=== PATIENT | male | born 1985 | race Hispanic/Latino ===

== ENCOUNTER 2019-05-30 10:50 | Emergency (ER) | payer OTHER, SELFPAY ==
--- NOTE | ~2019-05-30 | XR_ITS ---
EXAMINATION: XR chest 2V EXAM DATE: 05/30/2019 12:22 INDICATION: Cough and fever. TECHNIQUE: Frontal and lateral projections of the chest obtained and reviewed. Comparison is made to prior examination from 10/20/2011. FINDINGS: The lungs are clear. There are no pleural effusions. The cardiomediastinal silhouette is within normal limits. There is no pneumothorax suspected. The bones and soft tissues are unremarkab le. IMPRESSION: Normal chest x-ray exam. Reviewed, dictated and finalized at location A. CATESSEN CLERK IMPRESSION: Normal chest x-ray exam.
[2019-05-30 11:03] VITALS: BP 101/74; PULSE 79; RESP 18; TEMP 36.4; O2SAT 100
--- NOTE | 2019-05-30 11:21 | ED.URI ---
HPI - URI/Sore Throat General Chief Complaint: Upper Respiratory Infection Stated Complaint: I feel like crap Time Seen by Provider: 05/30/19 11:00 Source: patient Mode of arrival: ambulatory Limitations: no limitations History of Present Illness HPI Narrative: This is a 33 year old male that presents to the ER for cold symptoms x 2 days. Reports cough, congestion, myalgias and sore throat. Reports generalized weakness. Reports his children have been diagnosed with the Flu. Also reports a history of asthma and feeling short of breath. Denies chest pain. Related Data Home Medications Medication Instructions Recorded Confirmed No Home Medications 05/30/19 05/30/19 Allergies Allergy/AdvReac Type Severity Reaction Status Date / Time No Known Allergies Allergy Mild Verified 05/30/19 11:08 Review of Systems Review of Systems: Narrative: CONSTITUTIONAL: Reports fever, chills, and sweats. ENT: Reports rhinorrhea, congestion, sore throat CARDIOVASCULAR: Denies chest pain RESPIRATORY: Reports cough and dyspnea. GASTROINTESTINAL: Denies abdominal pain, nausea, vomiting NEUROLOGIC: Reports weakness. All systems reviewed & are unremarkable except as noted in HPI and below PMFSH Social History Social History Smoking status: Current every day smoker Gender identity (if verbalized by the patient): Male Exam Narrative: Exam Narrative: GENERAL: Well-appearing, well-nourished, and in no acute distress. HEAD: Normocephalic, atraumatic. EYES: EOMI. ENT: Turbinates swollen and pale. Mucous membranes moist. Oropharynx without tonsillar hypertrophy exudate or other lesions. Bilateral TMs pearly bond non-bulging NECK: Supple. No adenopathy or masses. CHEST: Clear to auscultation. No respiratory distress. No wheezes rales or rhonchi HEART: Regular rate and rhythm. No murmur heard. Normal peripheral pulses. EXTREMITIES: Normal range of motion. No edema. SKIN: Warm, dry, no rash. NEURO: No focal deficits. Alert and oriented x3. PSYCH: Normal mood and affect Course Vital Signs Vital signs: Vital Signs Temperature 97.6 F 05/30/19 11:03 Pulse Rate 79 05/30/19 11:03 Respiratory Rate 18 05/30/19 11:03 Blood Pressure 101/74 05/30/19 11:03 Pulse Oximetry 100 05/30/19 11:03 Temperature 97.6 F 05/30/19 11:03 Pulse Rate 79 05/30/19 11:03 Respiratory Rate 18 05/30/19 11:03 Blood Pressure 101/74 05/30/19 11:03 Pulse Oximetry 100 05/30/19 11:03 MDM - URI/Sore Throat MDM Narrative Medical decision making narrative: Patient presents to the emergency department for cold symptoms x2 days. He is afebrile and nontoxic-appearing. Influenza screen is negative. Does report sick contacts in his children who are positive for the flu. Patient is outside treatment window anyway even if this was a false negative. Chest x-ray is normal.Patient was instructed on [id number] care of viral infection. He is to follow-up with primary care doctor. He was given warnings to return to the ER Lab Data Labs: Influenza A Screen Negative Reference Range: Negative Influenza B Screen Negative Reference Range: Negative Imaging Data Radiologist's impression: ITS Impressions Chest X-Ray 05/30/19 12:27 IMPRESSION: Normal chest x-ray exam. Critical Care Time Critical Care Time Critical Care Time: No Discharge Plan Discharge Clinical Impression: Viral infection Patient Disposition: Home, Self-Care Condition: Stable Instructions: Cold Symptoms (ED) Additional Instructions: Return to the emergency department for worsening symptoms, or any other concerns Remain well-hydrated, get plenty of rest, no work or school for several days. Take Tylenol or Motrin [id number] for pain as needed. Flonase for nasal congestion. Zyrtec for runny nose. Lozenges or Chloraseptic spray for sore throa
== END 2019-05-30 13:04 | disposition home or self-care (01) ==
PROVIDERS: Emergency Provider Family Medicine
DX: B34.9 Viral infection, unspecified (principal); F17.200 Nicotine dependence, unspecified, uncomplicated
CPT/HCPCS: 71046; 87804; 99283

== ENCOUNTER 2019-06-10 04:19 | Emergency (ER) | payer OTHER, SELFPAY ==
--- NOTE | ~2019-06-10 | XR_ITS ---
EXAMINATION: XR hand RT min 3V DATE: 06/10/2019 04:44 INDICATION: Right hand injury. TECHNIQUE: 3 views of right hand were obtained. COMPARISON: None. FINDINGS: There is an oblique fracture of neck of third metacarpal. The distal fracture fragment demo nstrates 2 mm palmar displacement and 13 degrees palmar angulation. Joint spaces are normal. IMPRESSION: 1. Oblique fracture of neck of third metacarpal. Reviewed, dictated and finalized at location A. OPERATIVE TECH
--- NOTE | ~2019-06-10 | XR_ITS ---
EXAMINATION: XR wrist RT min 3V DATE: 06/10/2019 04:43 INDICATION: Right wrist injury. TECHNIQUE: 4 views of right wrist were obtained. COMPARISON: None. FINDINGS: There is an oblique fracture of neck of third metacarpal. The distal fracture fragment demo nstrates 2 mm palmar displacement and 13 degrees palmar angulation. Joint spaces are normal. IMPRESSION: 1. Oblique fracture of neck of third metacarpal. Reviewed, dictated and finalized at location A. ICK BOAT OPERATOR
[2019-06-10 04:25] VITALS: BP 109/63; PULSE 88; RESP 20; TEMP 36.4; O2SAT 98
--- NOTE | 2019-06-10 04:27 | ED.GENADULT ---
HPI - General Adult General Chief complaint: Extremity Injury, Upper Stated complaint: hand injury Time Seen by Provider: 06/10/19 04:24 Source: RN notes reviewed History of Present Illness HPI narrative: Patient presents to emergency department from home for right hand pain. Patient states prior to arrival he punched a wall with his right hand. Having pain in the right hand and wrist with swelling noted. Patient states he has pain at the base of the third and fourth digit dorsally. He denies any other injury. States he took no previous medication for the pain. Related Data Allergies Allergy/AdvReac Type Severity Reaction Status Date / Time No Known Allergies Allergy Mild Verified 06/10/19 04:27 Review of Systems Review of Systems: Narrative: Gen.: Denies fevers or chills Musculoskeletal: See HPI Neuro: Denies numbness, tingling, weakness Skin: Denies rash Endo: Denies DM PMFSH Past Medical History Medical History Asthma Bipolar disorder No pertinent family history Tympanic membrane perforation left Social History Social History Smoking status: Current every day smoker Gender identity (if verbalized by the patient): Male Exam Narrative: Exam Narrative: APPEARANCE: No acute distress, nontoxic, resting in bed Eyes: EOMI HEENT: Normocephalic, atraumatic, RESPIRATORY: No respiratory distress MUSCULOSKELETAl: Tender to palp patient diffusely over the right dorsal hand with swelling and ecchymosis noted at the base of the third and fourth digits in the region of the MCP, pain with any flexion or extension of all 5 MCP and IP joints, mild tenderness of the dorsal right wrist, no tenderness of the elbow, radial pulse 2+, neurovascular intact capillary refill less than 3 seconds in all 5 digits NEURO: Awake and alert. Following commands, speech normal, no focal deficits SKIN:: Warm, dry. Normal Color no rash or lesions Course Course Emergency Course: Discussed with patient results of workup and diagnosis. Discussed need for follow-up with primary care, proper use of medication, and reasons to return to the emergency department. Patient understands and agrees to current treatment plan Vital Signs Vital signs: Vital Signs Temperature 97.6 F 06/10/19 04:25 Pulse Rate 88 06/10/19 04:25 Respiratory Rate 20 06/10/19 04:25 Blood Pressure 109/63 06/10/19 04:25 Pulse Oximetry 98 06/10/19 04:25 Temperature 97.6 F 06/10/19 04:25 Pulse Rate 88 06/10/19 04:25 Respiratory Rate 20 06/10/19 04:25 Blood Pressure 109/63 06/10/19 04:25 Pulse Oximetry 98 06/10/19 04:25 Procedures Orthopedic Splinting/Casting Injury #1: Side: right Splint: customized in ED OCL: volar Pre-Procedure Neuro Vascular Exam: normal Post-Procedure Neuro Vascular Exam: normal Medical Decision Making Vital Signs Vital Signs: Vital Signs Temperature 97.6 F 06/10/19 04:25 Pulse Rate 88 06/10/19 04:25 Respiratory Rate 20 06/10/19 04:25 Blood Pressure 109/63 06/10/19 04:25 Pulse Oximetry 98 06/10/19 04:25 Temperature 97.6 F 06/10/19 04:25 Pulse Rate 88 06/10/19 04:25 Respiratory Rate 20 06/10/19 04:25 Blood Pressure 109/63 06/10/19 04:25 Pulse Oximetry 98 06/10/19 04:25 Imaging Data Attestation: I personally reviewed and interpreted this imaging study as follows: My impression: Right hand closed displaced third metacarpal fracture Discharge Plan Discharge Clinical Impression: Closed displaced fracture of third metacarpal bone Patient Disposition: Home, Self-Care Condition: Stable Instructions: Antibiotic Form, Boxer Fracture (ED) Additional Instructions: Return for increasing pain, numbness or tingling in extremities or any other symptoms of concern Prescriptions: New ibuprofen [IBU] 600 mg tablet 600 mg PO
[2019-06-10 05:47] VITALS: BP 110/80; PULSE 88; RESP 20; O2SAT 99
== END 2019-06-10 05:48 | disposition home or self-care (01) ==
PROVIDERS: Emergency Provider Emergency Medicine
DX: S62.332A Displaced fracture of neck of third metacarpal bone, right hand, initial encounter for closed fracture (principal); J45.909 Unspecified asthma, uncomplicated; F17.210 Nicotine dependence, cigarettes, uncomplicated; W22.09XA Striking against other stationary object, initial encounter
CPT/HCPCS: 29125; 73110; 73130; 99284; A9270

== ENCOUNTER 2019-06-21 13:41 | Emergency (ER) | payer OTHER, SELFPAY | END 2019-06-21 14:26 | disposition left against medical advice (07) | DX: Z53.21 Procedure and treatment not carried out due to patient leaving prior to being seen by health care provider (principal) | CPT/HCPCS: 99199 ==

== ENCOUNTER 2019-06-21 13:41 | Emergency (ER) | payer OTHER, SELFPAY | END 2019-06-21 14:05 | disposition left against medical advice (07) | DX: Z53.21 Procedure and treatment not carried out due to patient leaving prior to being seen by health care provider (principal) | CPT/HCPCS: 99199 ==

== ENCOUNTER 2019-06-21 14:09 | Emergency (ER) | payer OTHER, SELFPAY ==
[2019-06-21 14:17] VITALS: BP 133/73; PULSE 98; RESP 16; TEMP 37.2; O2SAT 98
--- NOTE | 2019-06-21 15:35 | ED.UPPEXIN ---
HPI - Extremity Injury (Upper) General Chief Complaint: Extremity Injury, Upper Stated Complaint: wants right arm rewrapped Time Seen by Provider: 06/21/19 14:37 Source: patient Mode of arrival: ambulatory Limitations: no limitations History of Present Illness HPI narrative: Patient presents for reapplication of splint to right hand. Patient was diagnosed with boxer's fracture and a splint was placed in emergency department. Patient followed up with Dr. Tom who the patient states is referring him to the [facility] for a removable splint. Patient reports that his splint was falling apart so he was directed to come to the emergency department for reapplication. Patient denies any other symptoms or concerns. Related Data Allergies Allergy/AdvReac Type Severity Reaction Status Date / Time No Known Allergies Allergy Mild Verified 06/13/19 09:02 Review of Systems Review of Systems: Narrative: CONSTITUTIONAL: Denies fever, chills, or sweats. EYES: Denies visual changes, redness, or discharge. ENT: Denies rhinorrhea, congestion, sore throat, or otalgia. CARDIOVASCULAR: Denies chest pain, palpitations, or edema. RESPIRATORY: Denies cough or dyspnea. GASTROINTESTINAL: Denies abdominal pain, nausea, vomiting, or diarrhea. GENITOURINARY: Denies dysuria or hematuria. SKIN: Denies rash or itching. MUSCULOSKELETAL: Reports right hand pain denies back pain, joint pain, or myalgia. NEUROLOGIC: Denies headache, numbness, dizziness, or weakness. PSYCHIATRIC: Denies anxiety or depression. [facility] Social History Social History Smoking status: Current every day smoker Gender identity (if verbalized by the patient): Male Exam Narrative: Exam Narrative: GENERAL: Well-appearing, well-nourished, and in no acute distress. HEAD: Normocephalic, atraumatic. EYES: PERRLA and EOMI. NECK: Range of motion intact CHEST: No respiratory distress. EXTREMITIES: Tattered volar splint applied to right hand. Normal range of motion. No edema. SKIN: Warm, dry, no rash. NEURO: No focal deficits. Alert and oriented x3. PSYCH: Normal mood and affect. Course Vital Signs Vital signs: Vital Signs Temperature 98.9 F 06/21/19 14:17 Pulse Rate 98 06/21/19 14:17 Respiratory Rate 16 06/21/19 14:17 Blood Pressure 133/73 06/21/19 14:17 Pulse Oximetry 98 06/21/19 14:17 Temperature 98.9 F 06/21/19 14:17 Pulse Rate 98 06/21/19 14:17 Respiratory Rate 16 06/21/19 14:17 Blood Pressure 133/73 06/21/19 14:17 Pulse Oximetry 98 06/21/19 14:17 Procedures Orthopedic Splinting/Casting Injury #1: Side: right Upper Extremity Injury Location: wrist Splint: customized in ED OCL: short arm Pre-Procedure Neuro Vascular Exam: normal Post-Procedure Neuro Vascular Exam: normal Discharge Plan Discharge Clinical Impression: Fracture of hand Qualifiers: Encounter type: subsequent encounter Fracture type: closed Laterality: right Fracture healing: with routine healing Qualified Code(s): S62.91XD - Unspecified fracture of right wrist and hand, subsequent encounter for fracture with routine healing Patient Disposition: Home, Self-Care Condition: Improved Instructions: Antibiotic Form Additional Instructions: Wear splint for support. Follow the recommendations given to you by plastic surgeon Dr. Tom. Rest, ice, elevate extremity. Return to emergency department if you have any emergent symptoms. Prescriptions: No Action hydrocodone-acetaminophen [[place]] 5-325 mg tablet 1 tablet PO Q6H PRN (Reason: pain) Qty: 15 RF: 0 ibuprofen [IBU] 600 mg tablet 600 mg PO Q6H PRN (Reason: pain) Qty: 20 RF: 0 hydrocodone-acetaminophen 5-325 mg tablet 1 tablet PO Q4H PRN (Reason: pain) Qty: 14 RF: 0 Follow-up/Referrals: UNKNOWN,DOCTOR [Primary Care Provider] - Time of Disposition: 15:38
== END 2019-06-21 15:44 | disposition home or self-care (01) ==
PROVIDERS: Emergency Provider Emergency Medicine
DX: S62.309D Unspecified fracture of unspecified metacarpal bone, subsequent encounter for fracture with routine healing (principal); X58.XXXD Exposure to other specified factors, subsequent encounter; F17.200 Nicotine dependence, unspecified, uncomplicated
CPT/HCPCS: 29125; 99282; 99284

== ENCOUNTER 2019-07-10 10:00 | Outpatient (RCR) | payer OTHER, SELFPAY ==
--- NOTE | 2019-06-25 11:17 | OTOPEVAL ---
OCCUPATIONAL THERAPY EVALUATION REPORT 06/25/19 Thank you for referring this patient to [facility]. Patient's insurance requires authorization prior to splint fabrication. Requesting 2 visits from insurance (1 to fabricate the splint and 1 to have a follow up appointment for splint check). Please review, sign, date and return this plan of care BRADEN. I agree with and certify that the following plan of care is medically necessary. Referring Physician Date Admitting Provider: Attending Provider: Richar Valdez MD Referring Provider: *OT Outpatient Evaluation Start: 06/25/19 11:01 Freq: Status: Active Protocol: Document 06/25/19 11:01 ANGEL (Rec: 06/25/19 11:17 ANGEL [email or web address]) Therapy Assessment Status Assessment Status Assessment Status Evaluation Outpatient Past Medical History Musculoskeletal History Hx Orthopedic Surgery Yes: LEFT CLAVICLE AND LEFT HAND Psychosocial History Hx Bipolar Disorder Yes Evaluation Information Problem Diagnosis oblique fracture of neck of third metacarpal Onset 06/13/19 Subjective Information Patient reports slipping up Query Text:As Reported By Patient/ the stairs a few days ago, Family landing on his injured hand. He reports sharp increase in pain from this incident. He did not seek medical evaluation for this. Prior Level of Function Activity Level (Last 3 Months) Hand Dominance Right Pain Assessment Timing of Pain Assessment Timing of Pain Assessment Assessment Pain Scale Pain Scale Used Numeric (1 - 10) Self Report Pain Assessment Right Hand(s) Reported Pain Level 10 Pain Description Stabbing,Throbbing,Tightness, Tingling Pain Score Pain Score 10: Self Report Upper Extremity Range of Motion Wrist Range of Motion Right Wrist Range of Motion Comments Not measured due to orthopedic precautions (acute fracture). Currently immobilized in temporary cast with ji bandage. Needs custom splint. Finger Range of Motion Right Finger Range of Motion Comments Pt is able to wiggle index, ring, and little fingers. Minimal AROM of middle finger with severe pain with attempting to wiggle PIP and DIP. Splint/Brace/Cast Assessment Splint and Bracing Assessment Right Hand Splinting/Bracing/Casting Comments Unable to fabricate removable
--- NOTE | 2019-07-23 13:14 | OTOPEVAL ---
OCCUPATIONAL THERAPY DISCHARGE NOTE 07/23/2019 At this time Noman is being discharged as his therapy needs have been addressed. A boxer's fracture splint has been issued along with splint wearing schedule, splint care, and precautions. Gentle AROM have also been issued. No further skilled OT is indicated. Thank you for your referral to [facility]. Please review, sign, date and return this D/C noteASAP. I agree with and certify that the following plan of care is medically necessary. Referring Physician Date Admitting Provider: Attending Provider: Richar Valdez MD Referring Provider:
== END 2019-07-24 08:32 | disposition home or self-care (01) ==
LOC: ANHOT 10:00
PROVIDERS: Visit Provider Surgery Plastic and Reconstructive Surgery
DX: S62.339D Displaced fracture of neck of unspecified metacarpal bone, subsequent encounter for fracture with routine healing (principal)
CPT/HCPCS: 97110; 97165; 97763; L3808

== ENCOUNTER 2019-07-12 11:17 | Outpatient (CLI) | payer OTHER, SELFPAY ==
--- NOTE | ~2019-07-12 | XR_ITS ---
XR hand RT min 3V DATE: 07/12/2019 11:38 INDICATION: Displaced fracture of third metacarpal TECHNIQUE: 3 views COMPARISON: 06/10/2019 right hand FINDINGS: There is a comminuted fracture of the neck of the third metacarpal bone. There is 2 mm anterior displacement; no significant change in position or alignment. There is mild fo reshortening of the 3rd metacarpal bone. There is callus formation consistent with healing. IMPRESSION: Healing 3rd metacarpal neck fracture Reviewed, dictated and finalized at location B.
== END 2019-07-12 11:18 | disposition home or self-care (01) ==
PROVIDERS: Visit Provider Surgery Plastic and Reconstructive Surgery
DX: S62.339D Displaced fracture of neck of unspecified metacarpal bone, subsequent encounter for fracture with routine healing (principal); X58.XXXD Exposure to other specified factors, subsequent encounter
CPT/HCPCS: 73130

== ENCOUNTER 2019-08-08 15:51 | Outpatient (CLI) | payer OTHER, SELFPAY ==
--- NOTE | ~2019-08-08 | XR_ITS ---
EXAMINATION: XR hand RT min 3V EXAM DATE: 08/08/2019 16:16 INDICATION: Subsequent visit for known closed fracture(s) follow-up of the third metacarpal neck. TECHNIQUE: Right hand frontal, lateral and oblique projections obtained and reviewed. Comparison is m loida to prior examination from 07/12/2019. FINDINGS: There is been interval maturation of the callus surrounding the neck of the right third met acarpal bone, which has mild volar angulation and displacement unchanged. Evidence of routine healing . No other suspicious findings. IMPRESSION: Healing right third metacarpal neck fracture. Reviewed, dictated and finalized at location A.
== END 2019-08-08 15:52 | disposition home or self-care (01) ==
PROVIDERS: Visit Provider Surgery Plastic and Reconstructive Surgery
DX: S62.339D Displaced fracture of neck of unspecified metacarpal bone, subsequent encounter for fracture with routine healing (principal)
CPT/HCPCS: 73130

== ENCOUNTER 2020-06-23 16:15 | Outpatient (CLI) | payer OTHER, SELFPAY ==
--- NOTE | ~2020-06-23 | CT_ITS ---
EXAMINATION: CT abdomen pelvis w con DATE: 06/23/2020 16:52 INDICATION: Generalized abdominal pain. Lymphadenopathy. TECHNIQUE: Computed tomography (CT) of the abdomen and pelvis was performed with 100 cc Omnipaque 350 intravenous contrast. Automated exposure control and iterative reconstruction technique were employe d. Exam dose: 332.87 mGy-cm total exam DLP. COMPARISON: None. FINDINGS: There is minimal dependent atelectasis at the lower lobes. The lung bases are otherwise ivelisse ar of infiltrate or consolidation. Normal heart size. No pericardial or pleural effusion. Diffuse hepatic steatosis. No hepatic, splenic, pancreatic, and adrenal or renal space-occupying mass lesion is detected. No urinary tract calculus or hydroureteronephrosis. Normal caliber of the abdominal aorta. No intraperitoneal or retroperitoneal or pelvic mass lesion or adenopathy or ascites. The urinary bladder is unremarkable. Minimal prostate calcification. Normal appendix. No bowel obstruction, bowel wall thickening, pneumatosis or intraperitoneal free air is detected. Included skeletal structures are unremarkable. No suspicious osteolytic or osteoblastic lesions are n oted. IMPRESSION: Hepatic steatosis No abdominal or pelvic lymphadenopathy Reviewed, dictated and finalized at Location A. Reviewed, dictated and finalized at location A.
== END 2020-06-23 16:16 | disposition home or self-care (01) ==
PROVIDERS: PCP Physician Assistant; Visit Provider Physician Assistant
DX: R59.0 Localized enlarged lymph nodes (principal); K76.0 Fatty (change of) liver, not elsewhere classified
CPT/HCPCS: 74177; Q9967

== ENCOUNTER 2021-02-23 15:10 | Emergency (ER) | payer OTHER, SELFPAY ==
--- NOTE | ~2021-02-23 | XR_ITS ---
EXAMINATION: XR chest 2V EXAM DATE: 02/23/2021 15:45 INDICATION: Left-sided chest and back pain. TECHNIQUE: Frontal and lateral projections of the chest obtained and reviewed. Comparison is made to prior examination from 05/30/2019. FINDINGS: The lungs are clear. There are no pleural effusions. The cardiomediastinal silhouette is within normal limits. There is no pneumothorax suspected. The bones and soft tissues are unremarkab le. IMPRESSION: Normal chest x-ray exam. Reviewed, dictated and finalized at location B. UT INSPECTOR IMPRESSION: Normal chest x-ray exam.
[2021-02-23 15:26] VITALS: BP 125/57; PULSE 71; RESP 18; TEMP 36.6; O2SAT 100
--- NOTE | 2021-02-23 17:01 | ED.URI ---
HPI - URI/Sore Throat General Chief Complaint: Upper Respiratory Infection Stated Complaint: Shortness of Breath Time Seen by Provider: 02/23/21 16:50 Source: patient, RN notes reviewed and old records reviewed Mode of arrival: ambulatory Limitations: no limitations History of Present Illness HPI Narrative: 35 year old male who [facility] with complaints of pain to his left posterior back radiating to his left chest area for the past 5 days with harsh cough. Patient denies any sore throat or any fevers, chills, or any body aches. He states that he has increase in discomfort with deep breathing denies any acute dyspnea or any noted wheezing. Patient admits to daily tobacco use. He reports that he has been taking some Ibuprofen and taking Theraflu with no resolution of his symptoms.Patient has not had COVID vaccinations. MD elicited complaint: cough Onset (ago): day(s) (5) Treatments prior to arrival: ibuprofen and other (Theraflu) Related Data Allergies Allergy/AdvReac Type Severity Reaction Status Date / Time No Known Allergies Allergy Mild Verified 02/23/21 16:02 Review of Systems Review of Systems: CONSTITUTIONAL: Denies fever, chills, or sweats. EYES: Denies visual changes, redness, or discharge. ENT: Denies rhinorrhea, congestion, sore throat, or otalgia. CARDIOVASCULAR: Positive for left posterior upper back radiating to left chest area pain denies any palpitation or any edema. RESPIRATORY: Positive for cough denies dyspnea. GASTROINTESTINAL: Denies abdominal pain, nausea, vomiting, or diarrhea. GENITOURINARY: Denies dysuria or hematuria. SKIN: Denies rash or itching. MUSCULOSKELETAL: Left upper/mid back pain,no other joint pain, or myalgia. NEUROLOGIC: Denies headache, numbness, or weakness. PSYCHIATRIC:Positive history of anxiety or depression. All systems reviewed & are unremarkable except as noted in HPI and below PMFSH Past Medical History Medical History (Updated 02/25/21 @ 16:09 by Kimberly Roy NP) Asthma Bipolar disorder Tympanic membrane perforation left Surgical History Surgical History (Updated 02/25/21 @ 16:00 by Kimberly Roy NP) History of hand surgery right Family History Family History (Updated 02/25/21 @ 16:09 by Kimberly Roy NP) Other Family history non-contributory Social History Social History Smoking status: Current every day smoker Gender identity (if verbalized by the patient): Male Comments At time of signature, agree with nursing past medical, surgical, social and family history. There is no relevant family history pertinent to the presenting complaint Exam Narrative: GENERAL: Well-appearing, well-nourished, and in no acute distress. HEAD: Normocephalic, atraumatic. EYES: PERRLA and EOMI. ENT: Nares red with clear rhinorrhea no epistaxis. Mucous membranes moist.TM's normal with good light reflex, throat mild red with no lesions or exudates,no tonsil enlargement NECK: Supple.no lymphadenopathy CHEST: Clear to auscultation. No respiratory distress. SAO2 100% on room air, some increase discomfort with deep breathing no dyspnea noted, no tachypnea, speaks in full sentences. HEART: Regular rate and rhythm. No murmur heard. Normal peripheral pulses. ABDOMEN: Soft, nontender, nondistended, normal active bowel sounds. EXTREMITIES: Normal range of motion. No edema. SKIN: Warm, dry, no rash. NEURO: No focal deficits. Alert and oriented x3. Course Vital Signs Vital signs: Vital Signs Temperature 36.6 C 02/23/21 15:26 Pulse Rate 71 02/23/21 15:26 Respiratory Rate 18 02/23/21 15:26 Blood Pressure 125/57 L 02/23/21 15:26 Pulse Oximetry 100 02/23/21 15:26 Temperature 36.6 C 02/23/21 15:26 Pulse Rate 71 02/23/21 15:26 Respiratory Rate 18 02/23/21 15:26 Blood Pressure 125/57 L 02/23/21 15:26 Pulse Oximetry 100 02/23/21 15:26 MDM - URI/Sore Throat Differe
== END 2021-02-23 17:15 | disposition home or self-care (01) ==
PROVIDERS: Emergency Provider Registered Nurse; PCP Physician Assistant
DX: M94.0 Chondrocostal junction syndrome [Tietze] (principal); F17.200 Nicotine dependence, unspecified, uncomplicated; J45.909 Unspecified asthma, uncomplicated
CPT/HCPCS: 71046; 87426; 99213; C9803; G0463

== ENCOUNTER 2021-03-10 18:30 | Outpatient (CLI) | payer OTHER, SELFPAY ==
--- NOTE | ~2021-03-10 | XR_ITS ---
EXAMINATION: XR shoulder LT min 2V DATE: 03/10/2021 18:57 INDICATION: Left shoulder injury. TECHNIQUE: 4 views of left shoulder were obtained. COMPARISON: Chest 2 views 05/30/2019, 05/21/04 FINDINGS: There is chronic inferior subluxation of the acromion with respect to distal clavicle with widening of coracoclavicular interval. No fracture. Glenohumeral joint is normal. IMPRESSION: 1. Chronic type III acromioclavicular separation. Reviewed, dictated and finalized at location A. CTOR PERSONAL
--- NOTE | ~2021-03-10 | XR_ITS ---
EXAMINATION: XR hand RT min 3V DATE: 03/10/2021 18:55 INDICATION: Right hand injury. TECHNIQUE: 3 views of right hand were obtained. COMPARISON: Right hand radiographs 08/08/2019 FINDINGS: Bone alignment is normal. No acute fracture. There are old healed fractures of third and fi fth metacarpals. Joint spaces are normal. IMPRESSION: 1. No acute fracture. Reviewed, dictated and finalized at location A. ITY MANAGER IMPRESSION: 1. No acute fracture.
== END 2021-03-10 18:31 | disposition home or self-care (01) ==
LOC: ANHIMG 18:32
PROVIDERS: PCP Physician Assistant; Visit Provider Physician Assistant
DX: S43.005A Unspecified dislocation of left shoulder joint, initial encounter (principal)
CPT/HCPCS: 73030; 73130

== ENCOUNTER 2021-05-22 14:46 | Outpatient (CLI) | payer OTHER, SELFPAY ==
--- NOTE | 2021-05-22 15:19 | PCRCNOTE ---
PT CAME IN FOR PULMONARY FUNCTION TESTING. PT WAS UNABLE TO PERFORM TESTING DUE TO SHORTNESS OF BREATH. AFTER SEVERAL SPIROMETRY ATTEMPTS PT FELT VERY DIZZY AND STATED HE THOUGHT HE WAS GOING TO PASS OUT. TESTING STOPPED. ATTEMPTED TO CALL ZULY MALHOTRA ORDERING PHYSICIAN AND NO ONE WAS AVAIL. PT STATES HE WILL CALL HER ON TUESDAY.
== END 2021-05-22 14:47 | disposition home or self-care (01) ==
LOC: ANHPFT 14:48
PROVIDERS: PCP Physician Assistant; Visit Provider Physician Assistant
DX: R06.00 Dyspnea, unspecified (principal)
CPT/HCPCS: 99199

== ENCOUNTER 2021-06-08 15:00 | Outpatient (RCR) | payer OTHER, SELFPAY ==
--- NOTE | 2021-05-12 14:33 | PTOPEVAL ---
Thank you for referring Noman Solis to [facility].? The patient is scheduled to be seen for therapy? 1-2 x/week for 6 weeks. Please review, sign, date and return this plan of care BRADEN. I agree with and certify that the following plan of care is medically necessary. Referring Physician Date Attending Provider: Shantelle Seymour, PA Diagnosis right knee pain Onset 2 yrs Cause hyper ext of knee Additional Evaluation Detail works in a [employer], [employer] normally Subjective Information States he hyperextended his Query Text:As Reported By Patient/ knee ~ 2 yrs agol when he Family stretched for a base when running in softball. He c/p severe pain after the injury. He did not receive medical treatment for the injury Reports the pain is medial aspect of knee and post gastroc region. States the leg ayush with walking . The has contributed to 5 falls in the past 6 months. Pain Assessment Self Report Pain Assessment Right Knee(s) Reported Pain Level 7 Pain Description Sharp,Tender on Palpation, Tightness Pain Frequency Chronic Lowest Pain Intensity 7 Greatest Pain Intensity 10 Pain Aggravating Factors ADL's,Bending,Exercise/ Activity,Lifting,Prolonged Position,Stair Climbing, Walking,Weight Bearing/ Standing Lower Extremity Range of Motion General Lower Extremity Range of Motion Gross Lower Extremity Range of Motion right knee 3-118 Comments Lower Extremity Muscle Strength Testing General Lower Extremity Strength Gross Lower Extremity Strength right hip and knee 4-/5 left LE 5/5 Posture Posture Standing Position Weight Distribution Weight Shifted Left,Decreased Wt.Bear on (R) Hip Posture (R) Externally Rotated Knee Posture (L) Genu Recurvatum Palpation Assessment Palpation Palpation tenderness medial knee joint line, sup patellar region, medial hamstring and gastroc region Special Tests-Lower Extremity Hip Special Tests Trendelenburg Sign Positive Left,Positive Right Hip Special Test Comments SLS right: 2 sec Knee Special Tests Anterior Drawer Negat
--- NOTE | 2021-05-18 15:47 | PCPTNOTE ---
Patient did not show up for scheduled appointment this date. Called and spoke with Pt, he forgot his appointment was today and was running late from work. He stated he would be at his Tuesday appointment 15:15.
--- NOTE | 2021-06-03 15:13 | PCPTNOTE ---
Patient called & cancelled scheduled appointment this date due to family emergency.
--- NOTE | 2021-06-08 17:29 | PTOPEVAL ---
Physical Therapy Progress Note Thank you for referring Noman Solis to [facility].? Noman has been seen for 6 therapy visits to address his right knee impairments. He has been provided a HEP and demonstrates compliance and understanding. He however demonstrates continued right knee pain which is not responding to therapy. Recommended he f/u with his MD to address his knee. Will assess his left shoulder problem at his next visit. Will send a updated POC based on shoulder impairments. Please review, sign, date and return this plan of care BRADEN. I agree with and certify that the following plan of care is medically necessary. Referring Physician Date Attending Provider: Shantelle Seymour, PA Diagnosis right knee pain Onset 2 yrs Cause hyper ext of knee Additional Evaluation Detail works in a [employer], [employer] normally States he hyperextended his knee ~ 2 yrs agol when he stretched for a base when russing in softball. He c/p severe pain after the injury. He did not receive medical treatment for hte injury Subjective Information Reports cont knee pain is Query Text:As Reported By Patient/ medial aspect of knee and Family proximal gastroc region. C/o knee right knee ayush with walking , as well as a clicking with walking. He has had 2 falls since starting therapy. He c/o new numbness and tingling of right knee and lower leg region. Pain Assessment Self Report Pain Assessment Right Knee(s) Reported Pain Level 8 Pain Description Numbness,Radiating,Sharp, Stabbing,Tender on Palpation, Tightness,Tingling Pain Radiation Left Leg Pain Frequency Chronic Lowest Pain Intensity 6 Greatest Pain Intensity 8 Lower Extremity Range of Motion General Lower Extremity Range of Motion Gross Lower Extremity Range of Motion right knee 3 to 125 dg Comments Lower Extremity Muscle Strength Testing General Lower Extremity Strength Gross Lower Extremity Strength right hip flex/ext: 5/5, hip abd: 4-/5, and knee ext 5/5, flex: 4-/5 left LE 5/5 Palpation Assessment Palpation severe tenderness medial knee joint line, patellar region, medial hamstring and gastroc region, adductor muscle and
--- NOTE | 2021-06-18 15:47 | PCPTNOTE ---
Patient did not show up for scheduled appointment this date. He could not get off work to attend therapy today. He will call back to reschedule.
--- NOTE | 2021-07-10 09:38 | PCPTNOTE ---
Admitting Provider: Attending Provider: Shantelle Seymour, DHAVAL Patient:Noman Solis Date of :1985 Physical Therapy Discharge Summary Patient has not returned for any further treatments since 06/08/2021, therefore he will be discharged at this time. He was scheduled for therapy assessment for his shoulder, but did not attend. His treatment for his had been completed. Patient?s initial visit was on 05/07/2021 15:30 and he had a total of 6 visits to address his knee. . The goals have been not met. Thank you for referring this patient to [facility]. Please review, sign, date and return this discharge summary BRADEN. I have been updated about the patient's current status and I agree with discharge from the above service at this time. Referring Physician Date
== END 2021-07-13 15:28 | disposition home or self-care (01) ==
LOC: ANHPT 15:00
PROVIDERS: PCP Physician Assistant; Visit Provider Physician Assistant
DX: M25.561 Pain in right knee (principal)
CPT/HCPCS: 97014; 97110; 97140; 97162; G0283

== ENCOUNTER 2021-07-24 13:29 | Outpatient (CLI) | payer OTHER, SELFPAY ==
--- NOTE | 2021-07-24 14:37 | P.PCNPFT_ITS ---
PFT Procedure Performed PFT Procedure Performed Spirometry with Pre/Post Bronchodilator Flow Vol Loop PFT Interpretation This is a pulmonary function test with pre and post-bronchodilator spirometry. The test was performed and results interpreted in accordance with the 2019 and 2005 ATS/ERS Task Force guidelines respectively using the Global Lung Function Initiative-2012 reference equations. Patient demonstrated good effort and cooperation. Reproducibility criteria were met. The quality of the pre bronchodilator spirometry maneuver was Grade A and post bronchodilator spirometry maneuver was Grade A. Findings: Spirometry: The contour the expiratory flow tracing demonstrates a knee pattern in 1 of 3 pre bronchodilator maneuvers and a more pronounced knee pattern in 3 of 3 post bronchodilator maneuvers. The contour the inspiratory flow tracing is normal. The pre bronchodilator FVC is 5.43 L, 117% predicted. The pre bronchodilator FEV1 is 4.08 L, 107% predicted. The pre bronchodilator FEV1: FVC ratio 75%. The post bronchodilator FVC is 5.27 L, representing a 3% decrease. The post bronchodilator FEV1 is 4.08 L, representing no change. The post bronchodilator FEV1: FVC ratio is 77%. Impression: The contour of the expiratory flow tracing demonstrates a knee pattern in 1 of 3 bronchodilator maneuvers and a more pronounced knee pattern in all 3 post bronchodilator maneuvers. The knee pattern can be a normal variant or pathologic and has been attributed to a choke point section of the bronchial tree. The normal variant is more common in younger female patients, decreases with age and is more pronounced in the post bronchodilator efforts. The pattern has also been described with kyphosis, kyphoscoliosis, central obstructing mass, and post lung transplantation. Clinical correlation is recommended. Otherwise the spirometry is normal without evidence of an obstructive abnorm ality. There is no significant improvement after inhaling a single dose of albuterol. There are no prior studies for comparison
== END 2021-07-24 13:30 | disposition home or self-care (01) ==
PROVIDERS: PCP Physician Assistant; Visit Provider Nurse Practitioner Gerontology
DX: R06.09 Other forms of dyspnea (principal); R55 Syncope and collapse
CPT/HCPCS: 94060

== ENCOUNTER 2021-08-10 09:44 | Outpatient (CLI) | payer OTHER, SELFPAY ==
--- NOTE | ~2021-08-10 | XR_ITS ---
EXAMINATION: XR chest 2V DATE: 08/10/2021 10:03 INDICATION: Dyspnea on exertion. TECHNIQUE: Frontal and lateral views of the chest were obtained. COMPARISON: Chest 2 views 02/23/2021 FINDINGS: The chest demonstrates clear lungs without pneumonia, pleural effusion, or pneumothorax. Th e heart size is normal. There are chronic findings of old left-sided acromioclavicular separation. IMPRESSION: 1. No acute cardiopulmonary disease. Reviewed, dictated and finalized at location B.
== END 2021-08-10 09:45 | disposition home or self-care (01) ==
LOC: ANHIMG 09:50
PROVIDERS: PCP Physician Assistant; Visit Provider Physician Assistant
DX: R06.09 Other forms of dyspnea (principal)
CPT/HCPCS: 71046

== ENCOUNTER 2021-09-28 12:50 | Emergency (ER) | payer OTHER, SELFPAY ==
--- NOTE | ~2021-09-28 | XR_ITS ---
EXAMINATION: XR foot LT min 3V DATE: 09/28/2021 13:09 INDICATION: Left foot pain TECHNIQUE: Dorsoplantar, lateral, and 2 oblique views of the left foot were obtained. COMPARISON: None. FINDINGS: There is no fracture, dislocation, or subluxation. The bones, soft tissues, and joint space s are normal. IMPRESSION: 1. No acute osseous abnormality. Reviewed, dictated and finalized at location A.
[2021-09-28 12:58] VITALS: BP 107/68; PULSE 71; RESP 16; TEMP 36.4; O2SAT 99
--- NOTE | 2021-09-28 13:22 | ED.LOWEXIN ---
HPI - Extremity Injury (Lower) General Chief Complaint: Extremity Injury, Lower Stated Complaint: Left foot Pain Time Seen by Provider: 09/28/21 13:22 Source: patient Mode of arrival: ambulatory Limitations: no limitations History of Present Illness HPI Narrative: 35 yo M presents with pain to lateral aspect of L foot for 2 days. Was at a parade and he stepped off curb to help his child car pick up driver candy and his foot rolled causing him to fall. has been limping since injury. pt is a land sales agent. Was not able to go to work today due to pain. All systems reviewed and negative except as noted above. Related Data Home Medications Medication Instructions Recorded Confirmed budesonide-formoterol HFA 160 inh inhalation 09/28/21 mcg-4.5 mcg/actuation aerosol inhaler (Symbicort) montelukast 10 mg tablet tablet 09/28/21 Allergies Allergy/AdvReac Type Severity Reaction Status Date / Time No Known Allergies Allergy Mild Verified 09/28/21 13:14 Review of Systems Review of Systems: CONSTITUTIONAL: Denies fever, chills, or sweats. EYES: Denies visual changes, redness, or discharge. ENT: Denies rhinorrhea, congestion, sore throat, or otalgia. CARDIOVASCULAR: Denies chest pain, palpitations, or edema. RESPIRATORY: Denies cough or dyspnea. GASTROINTESTINAL: Denies abdominal pain, nausea, vomiting, or diarrhea. GENITOURINARY: Denies dysuria or hematuria. SKIN: Denies rash or itching. MUSCULOSKELETAL: Reports left foot pain and swelling. NEUROLOGIC: Denies headache, numbness, or weakness. PSYCHIATRIC: Denies anxiety or depression. All other systems reviewed are negative, except as documented in HPI. [facility] Past Medical History Medical History (Updated 09/28/21 @ 13:35 by Amanda Kang NP) Asthma Bipolar disorder Tympanic membrane perforation left Surgical History Surgical History (Updated 02/25/21 @ 16:00 by Kimberly Roy NP) History of hand surgery right Family History Family History (Updated 02/25/21 @ 16:09 by Kimberly Roy NP) Other Family history non-contributory Social History Social History Smoking status: Current every day smoker Gender identity (if verbalized by the patient): Male Comments At time of signature, agree with nursing past medical, surgical, social and family history. There is no relevant family history pertinent to the presenting complaint. Exam Narrative: GENERAL: This is a well-nourished, well-developed patient, in no apparent distress. HEAD: normocephalic, atraumatic. EYES: PERRL. Sclera clear/white. Vision is grossly intact. EARS: External ears normal NOSE: External nose normal NECK: Neck supple, non-tender without lymphadenopathy, masses or thyromegaly. CARDIOVASCULAR: Regular rate and rhythm without murmurs, gallops, or rubs. RESPIRATORY: Clear to auscultation. Breath sounds equal bilaterally. No wheezes, rales, or rhonchi. SKIN: warm, Dry, intact with no suspicious lesions or rash, good texture and turgor. NEURO: awake, alert, and oriented to person, place and time. There were no obvious focal neurologic abnormalities. EXTREMITIES: Tenderness to lateral aspect left foot along fourth and fifth proximal metatarsals. Mild swelling noted. No bruising. Range of motion decreased due to pain. Distal neurovascularly intact. Course Course Level of Care: Express Care Visit Vital Signs Vital signs: Vital Signs Temperature 36.4 C L 09/28/21 12:58 Pulse Rate 71 09/28/21 12:58 Respiratory Rate 16 09/28/21 12:58 Blood Pressure 107/68 09/28/21 12:58 Pulse Oximetry 99 09/28/21 12:58 Oxygen Delivery Room Air 09/28/21 12:58 Temperature 36.4 C L 09/28/21 12:58 Pulse Rate 71 09/28/21 12:58 Respiratory Rate 16 09/28/21 12:58 Blood Pressure 107/68 09/28/21 12:58 Pulse Oximetry 99 09/28/21 12:58 Oxygen Delivery Room Air 09/28/21 12:58 Reviewed MDM - Ext
== END 2021-09-28 13:40 | disposition home or self-care (01) ==
PROVIDERS: Emergency Provider Nurse Practitioner Family; PCP Physician Assistant
DX: S93.602A Unspecified sprain of left foot, initial encounter (principal); X50.9XXA Other and unspecified overexertion or strenuous movements or postures, initial encounter; J45.909 Unspecified asthma, uncomplicated
CPT/HCPCS: 73630; 99213; G0463

== ENCOUNTER 2021-10-09 13:43 | Outpatient (CLI) | payer OTHER, SELFPAY ==
--- NOTE | 2021-10-09 | ECHO_ITS ---
Patient Info Name: Noman Solis Age: 35 years : 1985 Gender: Male Ht: 67 in Wt: 195 lbs BSA: 2.07 m2 HR: 73 bpm BP: 104 / 72 mmHg Heart Rhythm: Sinus Rhythm Technical Quality: Fair Exam Date: 10/09/2021 2:01 PM Exam Location: [facility] Pulmonary Patient Status: Outpatient Admit Date: 10/09/2021 Staff Ordering Physician: DylanSivan APRN Packager Machine: Ama Worthington RDCS Attending Provider: JanelleSivan APRN Exam Type: CA echo doppler color flow Study Info Indications - dyspnea, cp Complete two-dimensional, color flow and Doppler transthoracic echocardiogram is performed. Summary 1. Complete two-dimensional, color flow and Doppler transthoracic echocardiogram is performed. 2. Left ventricular chamber dimension is normal. 3. Left ventricular systolic function is normal, estimated at 60-65%. 4. The left ventricular diastolic function is normal. 5. E/e' 5 is not elevated. 6. There is trace mitral valve regurgitation. 7. There is trace tricuspid valve regurgitation. 8. No pulmonary hypertension, estimated pulmonary arterial systolic pressure is 21 mmHg. Left Ventricle E/e' 5 is not elevated. Left ventricular chamber dimension is normal. Left ventricular systolic function is normal, estimated at 60-65%. The left ventricular diastolic function is normal. Right Ventricle Right ventricular chamber dimension is normal. Right ventricular systolic function is normal and with normal TAPSE 1.9 cm. Left Atria Left atrial chamber dimension is normal. Right Atria Right atrial chamber dimension is normal. Aortic Valve The aortic valve is trileaflet. There is no aortic valve stenosis. There is no aortic valve regurgitation. Pulmonic Valve There is no pulmonic regurgitation. Mitral Valve There is no mitral valve stenosis. There is trace mitral valve regurgitation. Tricuspid Valve There is trace tricuspid valve regurgitation. No pulmonary hypertension, estimated pulmonary arterial systolic pressure is 21 mmHg. Pericardium/Pleural There is no pericardial effusion. Inferior Vena Cava Normal inferior vena cava with >50% collapse upon inspiration consistent with normal right atrial pressure, 5 mmHg. Aorta The aortic root size at the sinus of Valsalva is normal. Left Ventricular Outflow Tract Name Value Normal LVOT 2D LVOT Diameter 2.1 cm LVOT Doppler LVOT Peak Gradient 3 mmHg LVOT Mean Gradient 2 mmHg LVOT VTI 17 cm LVOT VTI/AV VTI Ratio 0.7 LVOT Stroke Volume 58 ml LVOT CO 4.1 l/min LVOT CI 2.0 l/min/m2 Pulmonic Valve Name Value Normal RVOT Doppler RVOT Peak Gradient 2 mmHg
== END 2021-10-09 13:44 | disposition home or self-care (01) ==
LOC: ANHCARD 13:45
PROVIDERS: PCP Physician Assistant; Visit Provider Nurse Practitioner Gerontology
DX: R55 Syncope and collapse (principal)
CPT/HCPCS: 93306

== ENCOUNTER 2021-10-15 14:54 | Emergency (ER) | payer OTHER, SELFPAY ==
[2021-10-15 15:03] VITALS: BP 112/68; PULSE 66; RESP 16; TEMP 36.4; O2SAT 99
--- NOTE | 2021-10-15 15:43 | ED.NAVMDI ---
HPI - Nausea/Vomiting/Diarrhea General Chief complaint: Nausea/Vomiting/Diarrhea Stated complaint: diarrhea/chills/fever/nausea Time Seen by Provider: 10/15/21 15:43 Source: patient Mode of arrival: ambulatory Limitations: no limitations History of Present Illness HPI Narrative: 35 yo M presents with c/o nausea, cough, fatigue for 4 to 5 days. Today began having diarrhea. No vomiting. States able to keep down plenty of water. Has been laying around in bed. Today made himself get out of bed because i want to see what's wrong . No ABD pain at this time. Denies SOB and CP. All systems reviewed and negative except as noted above. Related Data Home Medications Medication Instructions Recorded Confirmed budesonide-formoterol HFA 160 inh inhalation 09/28/21 mcg-4.5 mcg/actuation aerosol inhaler (Symbicort) montelukast 10 mg tablet tablet 09/28/21 Allergies Allergy/AdvReac Type Severity Reaction Status Date / Time No Known Allergies Allergy Mild Verified 09/28/21 13:14 Review of Systems Review of Systems: CONSTITUTIONAL: Denies fever, chills, or sweats. EYES: Denies visual changes, redness, or discharge. ENT: Denies rhinorrhea, congestion, sore throat, or otalgia. CARDIOVASCULAR: Denies chest pain, palpitations, or edema. RESPIRATORY: Reports cough. Denies dyspnea. GASTROINTESTINAL: Reports nausea, diarrhea. Denies abdominal pain and vomiting. GENITOURINARY: Denies dysuria or hematuria. SKIN: Denies rash or itching. MUSCULOSKELETAL: Denies back pain, joint pain, or myalgia. NEUROLOGIC: Denies headache, numbness, or weakness. PSYCHIATRIC: Denies anxiety or depression. All other systems reviewed are negative, except as documented in HPI. ON LICENSE OF [facility] Past Medical History Medical History (Updated 10/15/21 @ 16:13 by Amanda Kang NP) Asthma Bipolar disorder Tympanic membrane perforation left Surgical History Surgical History (Updated 02/25/21 @ 16:00 by Kimberly Roy NP) History of hand surgery right Family History Family History (Updated 02/25/21 @ 16:09 by Kimberly Roy NP) Other Family history non-contributory Social History Social History Smoking status: Current every day smoker Gender identity (if verbalized by the patient): Male Exam Narrative: GENERAL: This is a well-nourished, well-developed patient, in no apparent distress. HEAD: normocephalic, atraumatic. EYES: PERRL. Sclera clear/white. Vision is grossly intact. EARS: External ears normal, auditory canals clear and without drainage, TMs normal without perforation. Hearing grossly intact. NOSE: External nose normal with no obvious nasal discharge, nares without redness, no rhinorrhea. THROAT: Mucous membranes moist, posterior pharynx clear. NECK: Neck supple, non-tender without lymphadenopathy, masses or thyromegaly. CARDIOVASCULAR: Regular rate and rhythm without murmurs, gallops, or rubs. RESPIRATORY: Clear to auscultation. Breath sounds equal bilaterally. No wheezes, rales, or rhonchi. GASTROINTESTINAL: Abdomen soft, non-tender, nondistended. Bowel sounds are hyperactive. No hepato-splenomegaly, or palpable masses. No guarding. SKIN: warm, Dry, intact with no suspicious lesions or rash, good texture and turgor. NEURO: awake, alert, and oriented to person, place and time. There were no obvious focal neurologic abnormalities. EXTREMITIES: No joint tenderness, effusion, or edema noted. Course Course Level of Care: Express Care Visit Vital Signs Vital signs: Vital Signs Temperature 36.4 C 10/15/21 15:03 Pulse Rate 66 10/15/21 15:03 Respiratory Rate 16 10/15/21 15:03 Blood Pressure 112/68 10/15/21 15:03 Pulse Oximetry 99 10/15/21 15:03 Oxygen Delivery Room Air 10/15/21 15:03 Temperature 36.4 C 10/15/21 15:03 Pulse Rate 66 10/15/21 15:03 Respiratory Rate 16 10/15/21 15:03 Blood Pressure 112/68 10/15/21 15:03 P
[2021-10-15] MEDS: ONDANSETRON HCL ODT 4 MG TABLET SUBLINGUAL (15:59)
== END 2021-10-15 16:20 | disposition home or self-care (01) ==
PROVIDERS: Emergency Provider Nurse Practitioner Family; PCP Physician Assistant
DX: B34.9 Viral infection, unspecified (principal); Z20.822 Contact with and (suspected) exposure to COVID-19; J45.909 Unspecified asthma, uncomplicated
CPT/HCPCS: 87426; 87804; 99213; A9270; C9803; G0463

== ENCOUNTER 2021-11-23 07:21 | Outpatient (RCR) | payer OTHER, SELFPAY | END 2022-02-08 11:52 | disposition home or self-care (01) | LOC: ANHPT 07:21 | PROVIDERS: PCP Physician Assistant | DX: M75.42 Impingement syndrome of left shoulder (principal) | CPT/HCPCS: 99199 ==

== ENCOUNTER 2021-12-28 09:43 | Emergency (ER) | payer OTHER, SELFPAY ==
[2021-12-28 09:50] VITALS: BP 123/83; PULSE 86; RESP 28; TEMP 37.1; O2SAT 99
--- NOTE | 2021-12-28 11:31 | PC.NURSE ---
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 Pt reports he will follow up with his PCP. Pt A&Ox4 and ambulatory on leaving in no acute distress. Pt leaving before being seen by provider.
== END 2021-12-28 11:34 | disposition left against medical advice (07) ==
PROVIDERS: PCP Physician Assistant
DX: R20.0 Anesthesia of skin (principal)
CPT/HCPCS: 99199

== ENCOUNTER 2023-10-25 15:30 | Outpatient (RCR) | payer OTHER, SELFPAY ==
--- NOTE | 2023-10-03 15:32 | OPREHPOC ---
Outpatient Therapy Plan of Care This is a Multidisciplinary Plan of Care that may contain components documented by all disciplines (PT, OT, and ST.) PT Problem 1 PT Problem #1 Knowledge Deficit PT Goal 1 Goal *indep with HEP * correct body mechanics and positioning with exercises Target Visit 6 PT Problem 2 PT Problem #2 Pain PT Goal 1 Goal 1* pain rating at worst of 8/10 2* self assessment Oswestry rating of 28% limitation in activity 3* radicular pain into R LE intermittent, not constant Target Visit 6 PT Problem 3 PT Problem #3 Impaired Flexibility PT Goal 1 Goal increase flexibility of trunk and hips, to improve symmetry R/L and position of spine 1* supine R piriformis stretch- hip/knee > 90'- knee cross midline of body 2* supine trunk rotation R/L range same and no pain increase Target Visit 6 PT Problem 4 PT Problem #4 Impaired Strength PT Goal 1 Goal increase trunk and hip strength, to improve position of trunk and stability to spine 1* pt perform 20 reps of mat strengthening exercises 2* single leg standing R x 10 seconds Target Visit 6
--- NOTE | 2023-10-03 15:32 | PTOPEVAL1 ---
Assessment and note entered by Karie Caraballo, PT Evaluation Information Assessment Status Evaluation Diagnosis lumbar pain with R sciatica Onset Feb 2023 Subjective Information chronic back pain about 2 years ago-- recently worse; no injury or trauma to back; physical work; went to chiropractor for 3 months, 3x/wk, felt better but not last--adjustments to back and feeling blood flow to leg again; was off work from Feb to few weeks ago-- due to seasonal work and back pain Activity: [employer]- physical work; is currently working full duties; Reported Pain Level Pain Score Self Report Additional Pain Score Comments pain range in the past week -01/18; into R leg to toes-- constant numb and tingle in toes; cramps in calf increase pain: more active and working; lean over sink decrease pain: proper position of back, avoid bending over;ice chiropractors' treatment for back; is not doing any exercises; taking over the counter meds, they do not really help; awaken 1-2 x/night from sleeping due to pain Assessment PT Clinical Summary Noman has the diagnosis of lumbar radiculopathy, into R LE constant to toes. He has been going to a chiropractor with some pain relief, but does not last. He is not doing any back exercises at home and is fearful of hurting his back. Self assessment Oswestry rating of 34% limitation in activity. With the evaluation--he has decreased flexibility of R hip flexion and piriformis; standing trunk extension increase pain and he refused to do flexion for fear of increasing pain; weakness over trunk and hips; with walking, he has decreased weight shift onto R side. Skilled PT services are indicated for modalities to decrease pain and radicular s/s; therapeutic exercises to stretch and strengthen trunk and hips with education for HEP and back care. Plan of Care Interventions Electrical Stimulation,Hot Pack/Cold Pack,Manual Therap
--- NOTE | 2023-10-18 17:36 | PCPTNOTE ---
Patient called & cancelled scheduled appointment this date due to not having a ride.
--- NOTE | 2023-10-21 10:30 | PCPTNOTE ---
Pt no showed visit on 10-20-23.
--- NOTE | 2023-10-31 16:27 | PCPTNOTE ---
patient is a no show to his appointment today
--- NOTE | 2023-11-08 15:09 | PCPTNOTE ---
Pt no showed visit today
--- NOTE | 2023-11-14 10:26 | PTOPDC ---
Assessment and note entered by Karie Caraballo, PT Discharge Report Assessment Status Discharge - Pt Not Present Diagnosis lumbar pain with R sciatica Onset Feb 2023 Subjective Information pt was not seen this date. Assessment PT Clinical Summary Noman has received the PT evaluation on 09-13-23 and one treatment session on 10-25-23. He did not show for 4 and called/canceled 1 appointment. Therefore, he will be discharged at this time. The goals were not addressed. Plan of Care PT Services Indicated No
== END 2023-11-14 13:33 | disposition home or self-care (01) ==
LOC: ANHPT 15:30
PROVIDERS: PCP Physician Assistant; Visit Provider Physician Assistant
DX: M54.41 Lumbago with sciatica, right side (principal)
CPT/HCPCS: 97012; 97110; 97140; 97161; 97530

== ENCOUNTER 2023-10-27 15:44 | Outpatient (CLI) | payer OTHER, SELFPAY ==
--- NOTE | ~2023-10-27 | XR_ITS ---
AP and lateral views of the right hip Clinical history: Pain Findings: No acute fracture or dislocation is seen. Osseous alignment is anatomic. Right hip joint is preserved. Soft tissues are unremarkable. Impression: No significant abnormality is seen. Reviewed, dictated and finalized at location M. Impression: No significant abnormality is seen.
--- NOTE | ~2023-10-27 | XR_ITS ---
Left Shoulder Technique: AP and scapular Y views were obtained. Clinical History: Pain COMPARISON: 03/10/2021 Findings: No acute fracture or dislocation is seen. Osseous alignment is unchanged. Stable probable c hronic deficiency of the distal left clavicle and widening of the coracoclavicular distance. Soft tis sues are unremarkable. Impression: No acute abnormality. 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 Reviewed, dictated and finalized at location M. Impression: No acute abnormality. 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
--- NOTE | ~2023-10-27 | XR_ITS ---
Lumbosacral Spine: AP and lateral views Clinical History: Pain Findings: The normal lordotic curve is maintained. The vertebral bodies and posterior elements are i ntact. The intervertebral disc spaces are preserved. The sacroiliac joints are normally outlined. Impression: No significant abnormality. Reviewed, dictated and finalized at [facility]. Impression: No significant abnormality.
== END 2023-10-27 15:45 | disposition home or self-care (01) ==
PROVIDERS: PCP Physician Assistant; Visit Provider Physician Assistant
DX: M54.41 Lumbago with sciatica, right side (principal); M25.551 Pain in right hip; M25.512 Pain in left shoulder
CPT/HCPCS: 72100; 73030; 73502

== ENCOUNTER 2024-07-08 10:54 | Emergency (ER) | payer OTHER, SELFPAY ==
--- NOTE | 2024-07-08 10:57 | ED_ITS ---
HPI - Skin/Abscess/Foreign Bdy General Chief complaint: Skin/Abscess/Foreign Body Stated complaint: Belly Button Irritation/Drainage Time Seen by Provider: 07/08/24 11:19 Source: patient, RN notes reviewed and old records reviewed Mode of arrival: ambulatory Limitations: no limitations History of Present Illness HPI narrative: 38-year-old male presents to the [facility] with concerns for belly button irritation and drainage. Patient states that he woke up this morning and had dry blood around the umbilical area, inside the belly button had thick purulent bloody drainage. States that he was clearing brush when he thinks that something may have scratched him couple of days ago. No surrounding erythema, no drainage, no fluctuance noted at this time. Related Data Home Medications ?Medication ?Instructions ?Recorded ?Confirmed ?Last Taken ?Type budesonide-formoterol HFA 160 1 inh inhalation DAILY 09/28/21 10/15/21 Unknown History mcg-4.5 mcg/actuation aerosol inhaler (Symbicort) albuterol sulfate 90 mcg/actuation inhalation 07/08/24 Unknown History aerosol inhaler Allergies Allergy/AdvReac Type Severity Reaction Status Date / Time No Known Allergies Allergy Mild Verified 07/08/24 11:05 Review of Systems Review of Systems: All systems reviewed & are unremarkable except as noted in HPI and below Constitutional: Constitutional: Reports no additional constitutional complaints ENT: Reports system reviewed and no additional complaints, except as documented Cardiovascular: Cardiovascular: Reports no additional cardiovascular complaints, Denies chest pain and Denies dyspnea Respiratory: Respiratory: Reports no additional respiratory complaints, Denies chest congestion, Denies cough and Denies dyspnea Musculoskeletal: Musculoskeletal: Reports no additional musculoskeletal complaints Integumentary/Breasts: Skin/Breast: Reports as per HPI [facility] Past Medical History Medical History Bipolar disorder Asthma Tympanic membrane perforation left Surgical History Surgical History History of hand surgery right Family History Family History Other Family history non-contributory Social History Social History Smoking status: Current every day smoker Gender identity (if verbalized by the patient): Male Comments At the time of my signature, I reviewed and agree with the nursing past medical, surgical, social, and family history. There is no relevant family history pertinent to the patient complaint. Exam Const: General: cooperative, healthy appearing, comfortable, no acute distress, well developed, alert and well nourished Nutritional Appearance: well nourished Orientation/consciousness: patient oriented x3 Limitations: no limitations HENMT: Head: normal to inspection Eyes: General: appearance normal, both eyes and all related structures Alignment and Position: alignment normal Neck: Neck: normal visual inspection, full ROM, no lymphadenopathy and no meningeal signs Chest: Chest palpation & inspection: normal inspection of the chest Resp: Effort & Inspection: normal respiratory effort and able to speak in complete sentences Auscultation: clear to auscultation bilaterally, no crackles, no rales, no rhonchi and no wheezes Cardio: Rate: regular rate GI: GI Palp: No abdominal tenderness Auscultation: normal bowel sounds Other: GI blood and purulent drainage noted surrounding the belly button. Area cleaned with wound cleanser and saline. No fluctuance noted. No erythema noted. Skin: General skin exam: normal color and no rashes or lesions noted Neuro: General: patient oriented x3, gait normal, moves all extremities and no meningeal signs Cognition (Neuro): normal cognition Speech: normal speech Gait exam (Neuro): Normal gait present Extrem: General: normal to inspection, full ROM, capillary refill normal and normal gait Psych: Appearance: grossly normal and well kempt Mental Status: mental status grossly normal Speech and movement: Normal speech and movement present and Clear speech present Affect: normal affect Attitude: cooperative Course Course Level of Care: Express Care Visit Vital Signs Vital signs: Vital Signs Temperature 98.2 F 07/08/24 11:07 Pulse Rate 63 07/08/24 11:07 Respiratory Rate 20 07/08/24 11:07 Blood Pressure 104/55 L 07/08/24 11:07 Pulse Oximetry 99 07/08/24 11:07 Oxygen Delivery Room Air 07/08/24 11:07 Temperature 98.2 F 07/08/24 11:07 Pulse Rate 63 07/08/24 11:07 Respiratory Rate 20 07/08/24 11:07 Blood Pressure 104/55 L 07/08/24 11:07 Pulse Oximetry 99 07/08/24 11:07 Oxygen Delivery Room Air 07/08/24 11:07 Reviewed MDM - Skin/Abscess/Foreign Bdy MDM Narrative Medical decision making narrative: patient sitting comfortably in exam room. Nontoxic, vitals stable. Patient in no acute distress. Patient presents with dry purulent bloody drainage in the belly button, will cover with antibiotic. Note drainage noted, did not collect culture. No fluctuance. Patient appropriate for outpatient treatment with close follow-up Discharge instructions reviewed with patient, as well as provided in writing per nursing staff. The instructions also include specific and strict return/GO TO THE ER as well as f/u information. All questions have been answered, and the patient deny any further questions with discharge and discharge plan. Some parts of this dictation were generated by voice recognition software and may contain typographical and/or grammatical inaccuracies. Differential Diagnosis Differential diagnosis: Likely abscess of skin or subcutaneous tissue and cellulitis Critical Care Time Critical Care Time Critical Care Time: No Discharge Plan Discharge Clinical Impression: Umbilical discharge Patient Disposition: Home, Self-Care Condition: Stable Instructions: Antibiotic Form, Abrasion (ED) Additional Instructions: keep area clean and dry. Wash warm soapy water, pat dry. Do not use peroxide or alcohol in the belly button. Follow-up with your primary care provider this week Patient Language: Turkmen Prescriptions: New sulfamethoxazole-trimethoprim [Bactrim DS] 800-160 mg tablet 1 tablet PO Q12H Qty: 14 0RF No Action budesonide-formoterol [Symbicort] 160-4.5 mcg/actuation HFA aerosol inhaler 1 inh INHALATION DAILY albuterol sulfate 90 mcg/actuation HFA aerosol inhaler INHALATION Follow-up/Referrals: Lion,DHAVAL Orellana [Primary Care Provider] - 1 Week (express care follow up ) Stand Alone Forms: Work/School Release IP Time of Disposition: 11:38
[2024-07-08 11:07] VITALS: BP 104/55; PULSE 63; RESP 20; TEMP 36.8; O2SAT 99
== END 2024-07-08 11:45 | disposition home or self-care (01) ==
PROVIDERS: Emergency Provider Nurse Practitioner; PCP Physician Assistant
DX: R19.8 Other specified symptoms and signs involving the digestive system and abdomen (principal); J45.909 Unspecified asthma, uncomplicated
CPT/HCPCS: 99213; G0463

== ENCOUNTER 2024-10-31 14:12 | Emergency (ER) | payer OTHER, SELFPAY ==
--- NOTE | 2024-10-31 14:17 | ED.GENADULT ---
HPI - General Adult General Chief complaint: Extremity Injury, Lower Stated complaint: Bump Right Armpit/Right Knee Pain Source: patient Mode of arrival: ambulatory Limitations: no limitations History of Present Illness HPI narrative: Pt is a 38 y/o male presenting with c/o abscess to R. axilla x 1 week. Reports worsening in regards to pain, redness, swelling since onset. Reports hx of same to the L. axilla that went away for the most part. Also reports R. knee pain x 1 day that I'm only bringing up because I'm here. No tx initiated [employer]. No additional complaints. Related Data Home Medications ?Medication ?Instructions ?Recorded ?Confirmed ?Last Taken ?Type budesonide-formoterol HFA 160 1 inh inhalation DAILY 09/28/21 10/15/21 Unknown History mcg-4.5 mcg/actuation aerosol inhaler (Symbicort) albuterol sulfate 90 mcg/actuation inhalation 07/08/24 Unknown History aerosol inhaler Allergies Allergy/AdvReac Type Severity Reaction Status Date / Time No Known Allergies Allergy Mild Verified 10/31/24 14:19 Review of Systems Review of Systems: CONSTITUTIONAL: Denies body aches, fever, chills, or sweats. EYES: Denies visual changes, redness, or discharge. ENT: Denies rhinorrhea, congestion, sore throat, or otalgia. CARDIOVASCULAR: Denies chest pain, palpitations, or edema. RESPIRATORY: Denies cough or dyspnea. GASTROINTESTINAL: Denies abdominal pain, nausea, vomiting, or diarrhea. GENITOURINARY: Denies dysuria or hematuria. SKIN: Denies rash, itching, or wounds. reports bump to farideh. axilla (R>L) MUSCULOSKELETAL:Reports R. knee pain Denies back pain NEUROLOGIC: Denies headache, numbness, tingling, or weakness. PSYCH: Denies depression or anxiety. All systems reviewed & are unremarkable except as noted in HPI and below PMFSH Past Medical History Medical History Bipolar disorder Asthma Tympanic membrane perforation left Surgical History Surgical History History of hand surgery right Family History Family History Other Family history non-contributory Social History Social History Smoking status: Current every day smoker Gender identity (if verbalized by the patient): Male Exam Narrative: GENERAL: Well-appearing, well-nourished, and in no acute distress. HEAD: Normocephalic, atraumatic. EYES: EOMI. No redness or drainage. Conjunctivae normal. ENT: Mucous membranes pink and moist. NECK: Normal AROM. Supple. CHEST: No respiratory distress. HEART: Regular rate Normal peripheral pulses. MUSCULOSKELETAL: No bony tenderness. EXTREMITIES: Normal range of motion. No edema. DNVI to the RLE. No obvious acute deformity. Tenderness with palpation over the distal aspect of the R. posterior thigh with full extension. No open wounds. +FROM to farideh. upper extremities. SKIN: Warm, dry, no rash. Capillary refill normal. Normal skin turgor. 1.5cm area of induration noted to the R. axilla with fluctuance, mild erythema. NO lymphatic streaking or drainage. pea sized area of mobile induration noted to L. axilla without erythema, lymphatic streaking or other acute findings. NEURO: No focal deficits. Alert and oriented x3. Gait steady. PSYCH: Normal affect. No signs of depression or anxiety. Course Course Level of Care: Express Care Visit Vital Signs Vital signs: Vital Signs Temperature 98.3 F 10/31/24 14:23 Pulse Rate 67 10/31/24 14:23 Respiratory Rate 18 10/31/24 14:23 Blood Pressure 103/66 10/31/24 14:23 Pulse Oximetry 100 10/31/24 14:23 Oxygen Delivery Room Air 10/31/24 14:23 Temperature 98.3 F 10/31/24 14:23 Pulse Rate 67 10/31/24 14:23 Respiratory Rate 18 10/31/24 14:23 Blood Pressure 103/66 10/31/24 14:23 Pulse Oximetry 100 10/31/24 14:23 Oxygen Delivery Room Air 10/31/24 14:23 Procedures Abscess I/D upper extremity: Date of Incision: 10/31/24 Time of Incision: 14:51 Side (if applicable): right Sedation/analgesia: none Local Anesthetic: none (declined) Technique: incised with #11 blade Amount of fluid expressed (mL): 3 Irrigation: No Packing used?: none I&D Results: Pus and Blood Abcess I&D Additional Comments: purulent, sebaceous content Medical Decision Making MDM Narrative Medical decision making narrative: declined incision of the sebaceous cyst to the L. axilla stating it isn't bothering him. Encouraged him to f/u with derm/plastics for removal of the cysts--unable to fully remove sac of the cyst to the R. axilla today due to active infection/inflammation. Declined imaging of the knee Vital Signs Vital Signs: Vital Signs Temperature 98.3 F 10/31/24 14:23 Pulse Rate 67 10/31/24 14:23 Respiratory Rate 18 10/31/24 14:23 Blood Pressure 103/66 10/31/24 14:23 Pulse Oximetry 100 10/31/24 14:23 Oxygen Delivery Room Air 10/31/24 14:23 Temperature 98.3 F 10/31/24 14:23 Pulse Rate 67 10/31/24 14:23 Respiratory Rate 18 10/31/24 14:23 Blood Pressure 103/66 10/31/24 14:23 Pulse Oximetry 100 10/31/24 14:23 Oxygen Delivery Room Air 10/31/24 14:23 Discharge Plan Discharge Clinical Impression: Acute pain of right knee, Sebaceous cyst of left axilla, Abscess of axilla, right Patient Disposition: Home Condition: Stable Instructions: Antibiotic Form, Knee Pain (ED), Abscess Incision and Drainage (DC) Additional Instructions: Go straight to ER should your symptoms become worse or should any new symptoms develop Patient Language: Malaysian Prescriptions: New doxycycline hyclate 100 mg capsule 100 mg PO DAILY Qty: 14 0RF ibuprofen 600 mg tablet 600 mg PO Q6H PRN (Reason: pain) Qty: 30 0RF No Action budesonide-formoterol [Symbicort] 160-4.5 mcg/actuation HFA aerosol inhaler 1 inh INHALATION DAILY albuterol sulfate 90 mcg/actuation HFA aerosol inhaler INHALATION Follow-up/Referrals: Lion,DHAVAL Orellana [Primary Care Provider] - 10/31/24 Time of Disposition: 14:37
[2024-10-31 14:23] VITALS: BP 103/66; PULSE 67; RESP 18; TEMP 36.8; O2SAT 100
== END 2024-10-31 14:46 | disposition home or self-care (01) ==
PROVIDERS: Emergency Provider Registered Nurse; PCP Physician Assistant
DX: L02.411 Cutaneous abscess of right axilla (principal); L72.3 Sebaceous cyst; M25.561 Pain in right knee; F17.200 Nicotine dependence, unspecified, uncomplicated; J45.909 Unspecified asthma, uncomplicated
CPT/HCPCS: 10060; 99213; G0463